=== PATIENT | female | born 1995 | race Caucasian/White ===

== ENCOUNTER 2018-07-22 22:17 | Emergency (ER) | payer OTHER ==
[~2018-07-22] VITALS: Ht 160 cm; Wt 70.3 kg
[2018-07-22 22:27] VITALS: BP 140/79
[2018-07-22] MEDS ORDERED: ZYRTEC10 M2 PO (22:48)
[2018-07-22] MEDS ORDERED: FLONASE 0.05%50 MCG NASAL (22:48)
== END 2018-07-22 23:03 | disposition home or self-care (01) ==
LOC: ER 22:17
DX: J30.9 Allergic rhinitis, unspecified (principal)